=== PATIENT | male | born 1965 | race Caucasian/White ===

== ENCOUNTER 2020-06-09 09:10 | Outpatient (CLI) | payer OTHER | END 2020-06-09 23:59 | disposition home or self-care (01) | LOC: STAR 09:10 | PROVIDERS: ATTEND Surgery | DX: Z20.822 Contact with and (suspected) exposure to COVID-19 (principal); K40.90 Unilateral inguinal hernia, without obstruction or gangrene, not specified as recurrent | CPT/HCPCS: 87635 ==

== ENCOUNTER 2020-06-15 11:55 | Day surgery (SDC) | payer OTHER ==
[~2020-06-15] VITALS: Ht 180.3 cm; Wt 90.1 kg
[~2020-06-15 11:55] MED LIST: BUPIVACAINE/PF 0.5% ONE
[2020-06-15 12:56] VITALS: BP 117/75
[2020-06-15] MEDS ORDERED: NO HOME MEDS PER PT (12:56)
[2020-06-15] MEDS ORDERED: CHLORHEXIDINE 15 ML UDC MM ONE (13:00)
[2020-06-15] MEDS ORDERED: LACTATED RINGERS 1,000 ML IV SCH (13:00)
[2020-06-15] MEDS ORDERED: MIDAZOLAM 1 MG/ML, 2ML ONE (14:22)
[2020-06-15] MEDS ORDERED: FENTANYL PF 250 MCG/5ML ONE (14:22)
[2020-06-15] MEDS ORDERED: PROPOFOL 10 MG/ML, 20ML ONE (15:43)
[2020-06-15] MEDS ORDERED: ROCURONIUM 10 MG/ML,10ML ONE (15:43)
[2020-06-15] MEDS ORDERED: DEXAMETHASONE 4 MG/ML, 1ML ONE (15:43)
[2020-06-15] MEDS ORDERED: ONDANSETRON 2MG/ML, 2ML ONE (15:43)
[2020-06-15] MEDS ORDERED: SUGAMMADEX 200 MG/2 ML IVPush ONE (15:43)
[2020-06-15] MEDS ORDERED: CEFAZOLIN 1,000 MG ONE (15:43)
[2020-06-15] MEDS ORDERED: FENTANYL PF 100 MCG/2ML ONE (16:51)
[2020-06-15] MEDS ORDERED: OXYcodone 5 MG/5 ML ORAL.SOL UDC ONE (16:51)
[2020-06-15] MEDS: FENTANYL PF 100 MCG/2ML IV PRN ×2 (16:53→16:58)
[2020-06-15] MEDS ORDERED: DIPHENHYDRAMINE 50 MG/ML, 1ML IVPush PRN (17:00)
[2020-06-15] MEDS ORDERED: METOCLOPRAMIDE 5 MG/ML, 2ML IVPush PRN (17:00)
[2020-06-15] MEDS ORDERED: ONDANSETRON 2MG/ML, 2ML IVPush PRN (17:00)
[2020-06-15] MEDS ORDERED: HYDROmorphone 1 MG/ML, 1ML INJ IVPush PRN (17:00)
[2020-06-15] MEDS ORDERED: ACETAMINOPHEN 325 MG TABLET PO PRN (17:00)
[2020-06-15] MEDS ORDERED: HALOPERIDOL 5 MG/ML IV PRN (17:00)
[2020-06-15] MEDS ORDERED: hydrALAzine 20 MG/ML, 1ML IV PRN (17:00)
[2020-06-15] MEDS ORDERED: KETOROLAC 30 MG/1 ML IVPush PRN (17:00)
[2020-06-15] MEDS ORDERED: LABETALOL 5MG/ML, 20ML IV PRN (17:00)
[2020-06-15] MEDS ORDERED: PROMETHAZINE 25 MG/ML, 1ML IVPush PRN (17:00)
[2020-06-15] MEDS ORDERED: DIAZEPAM 5 MG/ML, 2ML IVPush PRN (17:00)
[2020-06-15] MEDS ORDERED: OXYcodone 5 MG/5 ML ORAL.SOL UDC PO PRN (17:00)
[2020-06-15] MEDS ORDERED: EPHEDRINE 50 MG/ML, 1ML IVPush PRN (17:00)
[2020-06-15] MEDS ORDERED: METOPROLOL 1 MG/ML, 5ML IV PRN (17:00)
[2020-06-15] MEDS ORDERED: KETOROLAC 30 MG/1 ML ONE (17:07)
== END 2020-06-15 19:15 | disposition home or self-care (01) ==
LOC: OUT 11:55
PROVIDERS: ATTEND Surgery
DX: K40.90 Unilateral inguinal hernia, without obstruction or gangrene, not specified as recurrent (principal); Z98.890 Other specified postprocedural states
CPT/HCPCS: 49650; C1781; J0690; J1100; J1885; J2250; J2405; J2704; J3010; J7120; S2900